=== PATIENT | male | born 2005 | race Caucasian/White ===

== ENCOUNTER 2024-04-23 00:06 | Emergency (ER) | payer SELFPAY ==
[~2024-04-23] VITALS: Ht 182.9 cm; Wt 71.4 kg
[2024-04-23 00:12] VITALS: TEMP 98.6
[2024-04-23] MEDS ORDERED: NS 1,000 ML IV ONE (01:45)
[2024-04-23] MEDS ORDERED: Acetaminophen 500 MG TAB PO ONE (01:45)
[2024-04-23 02:08] LABS: BASO # 0.1 K/mm3 (0.0-0.2); BASO % 0.4 % (0.0-2.0); EOS # 0.2 K/mm3 (0.0-0.7); EOS % 1.2 % (0.0-4.0); GRAN # 10.3 K/mm3 (1.4-6.5); HEMOGLOBIN 14.2 g/dl (12.5-16.1); LYMPH # 1.5 K/mm3 (1.2-3.4); LYMPH % 11.4 % (20.0-51.0); MEAN CELL VOLUME 90 fl (80.0-95.0); MEAN CORPUSCULAR HEMOGLOBIN 30 pg (26-32); MEAN CORPUSCULAR HGB CONC 33 g/dl (33.0-37.0); MEAN PLATELET VOLUME 10.6 fl (7.4-10.4); MONO # 1.3 K/mm3 (0.1-0.6); MONO % 9.7 % (1.7-9.3); PLATELET COUNT 219 K/mm3 (130-400); RED BLOOD COUNT 4.79 M/mm3 (4.20-5.60); REDCELL DISTRIBUTION WIDTH-CV 12.5 % (11.5-14.5)
[2024-04-23 02:26] LABS: ALBUMIN 4.2 g/dL (3.5-5.0); BILIRUBIN,TOTAL 0.5 mg/dL (0.2-1.2); CALCIUM 10.7 mg/dL (8.4-10.2); CREATININE, serum 1.09 mg/dL (0.72-1.25); POTASSIUM 3.8 mEq/L (3.5-4.5); TOTAL PROTEIN 7.3 g/dl (6.2-8.1)
[2024-04-23 03:21] LABS: PH 8.5 (5.0-8.5); URINE APPEARANCE CLEAR (CLEAR/HAZY); URINE BLOOD NEGATIVE (NEGATIVE); URINE COLOR YELLOW (YELLOW); URINE GLUCOSE NEGATIVE (NEGATIVE); URINE KETONE NEGATIVE (NEGATIVE); URINE NITRATE NEGATIVE (NEGATIVE); URINE PROTEIN(semi-quant) TRACE (NEGATIVE); URINE UROBILINOGEN 0.2 E.U/dL (0.2-1.0)
[2024-04-23 03:28] LABS: COLLECTION METHOD CLEAN CATCH
[2024-04-23 04:12] VITALS: BP 121/57; PULSE 82
== END 2024-04-23 04:21 | disposition home or self-care (01) ==
LOC: COL.ER 00:06
PROVIDERS: Emergency Medicine
DX: R69 Illness, unspecified (principal)
CPT/HCPCS: J7030